=== PATIENT | female | born 1960 | race Caucasian/White ===

== ENCOUNTER 2018-11-28 09:04 | Inpatient (IN) | payer MEDICAID, OTHER ==
[~2018-11-28] VITALS: Ht 165.1 cm; Wt 122.9 kg
[2018-11-28] VITALS (43 sets, daily range): BP systolic 81–138; BP diastolic 40–72
[2018-11-28] MEDS ORDERED: HALOPERIDOL LACTATE 5 MG/ML INJ VIAL ONE (09:11)
[2018-11-28] MEDS ORDERED: diphenhdrAMINE HCL 50 MG/1 ML VL ONE (09:12)
[2018-11-28] MEDS ORDERED: LORazepam 2MG/ML-1ML VIAL ONE (09:12)
[2018-11-28] MEDS ORDERED: HALOPERIDOL LACTATE 5 MG/ML INJ VIAL IM ONE (09:45)
[2018-11-28] MEDS ORDERED: LORazepam 2MG/ML-1ML VIAL IM ONE (09:45)
[2018-11-28] MEDS ORDERED: SODIUM CHLORIDE 0.9% 1,000 ML IV ONE ×5 (09:45→11:00)
[2018-11-28] MEDS ORDERED: diphenhdrAMINE HCL 50 MG/1 ML VL IM ONE (09:45)
[2018-11-28 09:51] LABS: Hematocrit 42.8 % (36.0-46.0); Hemoglobin 14.2 g/dL (12.2-16.2); Mean Corpuscular Hemoglobin 27.9 pg (28.0-32.0); Mean Corpuscular Hgb Conc. 33.1 g/dL (32.0-36.0); Mean Corpuscular Volume 84.3 fL (80.0-100.0); Platelet Count (auto) 382 10^3/uL (140-450); Red Blood Cells 5.08 10^6/uL (4.0-5.20); Red Cell Distribution Width 16.3 % (11.8-14.3)
[2018-11-28 09:56] LABS: Urine Amorphous Crystal MOD /hpf (None Seen); Urine Bacteria FEW /hpf (None Seen); Urine Blood 3+ /uL (Negative); Urine Mucus FEW (None Seen); Urine Specific Gravity 1.024 (1.001-1.035); Urine WBC 22 /hpf (0 - 5); Urine WBC Clumps PRESENT /hpf (None Seen)
[2018-11-28 10:02] LABS: White Blood Cell 31.4 10^3/uL (4.4-10.8)
[2018-11-28 10:05] LABS: Basophils % (manual) 0 (0.0-2.0); Blast Cells 0; Eosinophils % (manual) 0 (0-7); Metamyelocytes % 0; Myelocytes % 0; Promyelocytes % 0; Reactive Lymphocytes 0
[2018-11-28 10:07] LABS: Alanine Aminotransferase 42 U/L (13-56); Albumin 4.5 g/dL (3.4-5.0); Anion Gap 20 (5-15); Aspartate Aminotransferase 70 U/L (15-37); BUN/Creatinine Ratio 12.3; Blood Alcohol < 3.0 mg/dL (0-5); Blood Urea Nitrogen 45 mg/dL (7-18); Calcium 9.1 mg/dL (8.5-10.1); Carbon Dioxide 14 mmol/L (21-32); Chloride 117 mmol/L (98-107); GFR African American 16 mL/min; GFR Non-African American 14 mL/min; Glucose 237 mg/dL (74-106); Magnesium 2.8 mg/dL (1.6-2.6); Potassium 3.8 mmol/L (3.5-5.1); Sodium 151 mmol/L (136-145)
[2018-11-28 10:09] LABS: Lactic Acid w/Reflex 5.5 mmol/L (0.4-2.0)
[2018-11-28 10:12] LABS: Alkaline Phosphatase 124 U/L (45-117); Bilirubin, Total 0.5 mg/dL (0.2-1.0); Total Protein 8.8 g/dL (6.4-8.2)
[2018-11-28 10:13] LABS: Alcohol, Urine < 3.0 mg/dL (0-5); Amphetamine Screen, Urine POSITIVE (NEGATIVE); Barbiturate Scree,Urine NEGATIVE (NEGATIVE); Benzodiazephine Screen, Urine NEGATIVE (NEGATIVE); Cannabinoid Screen, Urine NEGATIVE (NEGATIVE); Cocaine Screen, Urine NEGATIVE (NEGATIVE); Opiate Scree,Urine NEGATIVE (NEGATIVE); Phencyclidine Screen, Urine NEGATIVE (NEGATIVE)
[2018-11-28] MEDS ORDERED: cefTRIAXone 1GM/50ML D5W 50 ML IV ONE (10:30)
[2018-11-28] MEDS ORDERED: AZITHROMYCIN 500MG/ 250ML 250 ML IV ONE ×2 (10:52→11:00)
[2018-11-28] MEDS ORDERED: SODIUM CHLORIDE 0.9% IV ONE (11:00)
[2018-11-28 11:25] LABS: Band Neutrophils % (manual) 1; Lymphocytes % (manual) 4 (10.0-50.0); Monocytes % (manual) 7 (0-12)
[2018-11-28] MEDS ORDERED: MORPHINE SULF INJ 2 MG/ML SYRINGE 1ML IV PRN (13:30)
[2018-11-28] MEDS ORDERED: NITROGLYCERIN 0.4 MG SL TAB SL PRN (13:30)
[2018-11-28] MEDS ORDERED: PROPOFOL 100 ML IV ONE (14:04)
[2018-11-28] MEDS ORDERED: ETOMIDATE (2MG/ML) 20ML VIAL IV ONE (14:04)
[2018-11-28] MEDS ORDERED: THIAMINE 100mg/ml INJ (200mg/2ml VIAL) IV ONE (14:15)
[2018-11-28] MEDS ORDERED: DEXTROSE (50%) 50ML SYRG IV PRN (14:15)
[2018-11-28] MEDS ORDERED: SOD CHL 0.45% 1,000 ML IV SCH (14:15)
[2018-11-28] MEDS ORDERED: SUCCINYLCHOLINE CHLORIDE 20 MG/ML 10ML VIAL IV ONE (14:17)
[2018-11-28] MEDS ORDERED: NOREPINEPHRINE 8 MG/250ML KIT 250 ML IV ONE (14:23)
[2018-11-28] MEDS: NOREPINEPHRINE 8 MG/250ML KIT 250 ML IV SCH (14:27)
[2018-11-28] MEDS ORDERED: PIPERACILLIN-TAZOB 2.25GM 50 ML IV ONE (14:30)
[2018-11-28] MEDS ORDERED: FAMOTIDINE (10MG/ML) 2ML VL IV ONE (14:30)
[2018-11-28] MEDS: PROPOFOL 100 ML IV SCH ×4 (15:23→21:45)
[2018-11-28] MEDS: SODIUM BICARBONATE 50ML VIAL 50 ML in SOD CHL 0.45% 1,000 ML IV SCH (16:35)
[2018-11-28] MEDS: PIPERACILLIN-TAZOB 2.25GM 50 ML IV SCH (18:00)
[2018-11-28] MEDS: InsuLIN REG 1unit/0.01ml Soln (100units/ml) SC SCH (18:57)
[2018-11-28] MEDS: ACCU-CHEK COMFORT CURVE STRIP VI SCH (18:57)
[2018-11-28] MEDS: fentaNYL Drip 2500mCg/250mlNS 250 ML IV SCH (21:00)
[2018-11-28] MEDS: MIDAZOLAM DRIP 50 mg/50mL 50 ML IV SCH (21:00)
[2018-11-28] MEDS: FAMOTIDINE (10MG/ML) 2ML VL IV SCH (22:30)
[2018-11-29] VITALS (100 sets, daily range): BP systolic 81–120; BP diastolic 33–69
[2018-11-29] MEDS: ACCU-CHEK COMFORT CURVE STRIP VI SCH ×5 (02:15→22:00)
[2018-11-29] MEDS: SODIUM BICARBONATE 50ML VIAL 50 ML in SOD CHL 0.45% 1,000 ML IV SCH ×2 (02:33→07:03)
[2018-11-29] MEDS: InsuLIN REG 1unit/0.01ml Soln (100units/ml) SC SCH ×5 (04:05→22:28)
[2018-11-29 04:20] LABS: Basophils # (auto) 0.1 uL; Eosinophils # (auto) 0.3 uL; Eosinophils % (auto) 1.9 % (0.0-7.0); Hematocrit 32.6 % (36.0-46.0); Hemoglobin 10.6 g/dL (12.2-16.2); Lymphocytes % (auto) 14.4 % (10.0-50.0); Mean Corpuscular Hemoglobin 27.5 pg (28.0-32.0); Mean Corpuscular Hgb Conc. 32.4 g/dL (32.0-36.0); Mean Corpuscular Volume 85.1 fL (80.0-100.0); Monocytes # (auto) 0.7 uL; Monocytes % (auto) 5.3 % (0.0-12.0); Neutrophils # (auto) 10.9 uL; Neutrophils % (auto) 77.4 % (37.0-80.0); Nucleated Red Blood Cells % 0.1 %; Platelet Count (auto) 196 10^3/uL (140-450); Red Blood Cells 3.84 10^6/uL (4.0-5.20); Red Cell Distribution Width 16.3 % (11.8-14.3); White Blood Cell 14.1 10^3/uL (4.4-10.8)
[2018-11-29 04:34] LABS: Potassium 3.1 mmol/L (3.5-5.1)
[2018-11-29 04:44] LABS: Albumin 2.9 g/dL (3.4-5.0); BUN/Creatinine Ratio 18.6; Bilirubin, Total 0.3 mg/dL (0.2-1.0); Calcium 7.2 mg/dL (8.5-10.1)
[2018-11-29] MEDS: PIPERACILLIN-TAZOB 2.25GM 50 ML IV SCH ×4 (07:57→18:15)
[2018-11-29] MEDS ORDERED: POTASSIUM CHL 20MEQ/100ML 100 ML IV ONE (08:15)
[2018-11-29] MEDS: FAMOTIDINE (10MG/ML) 2ML VL IV SCH ×2 (09:50→22:45)
[2018-11-29] MEDS: THIAMINE 100mg/ml INJ (200mg/2ml VIAL) IV SCH (09:50)
[2018-11-29] MEDS: MIDAZOLAM DRIP 50 mg/50mL 50 ML IV SCH ×3 (09:51→20:30)
[2018-11-29] MEDS ORDERED: VANCOMYCIN PER PHARMACY 0 MG IV SCH (12:45)
[2018-11-29] MEDS ORDERED: Glucerna 1.2 Cal 1Liter BOTTLE GT SCH (12:45)
[2018-11-29] MEDS ORDERED: D5W/SOD CHL 0.45% 1,000 ML IV SCH (12:45)
[2018-11-29] MEDS ORDERED: VANCOMYCIN 1,250 MG in D5W 5% 250 ML IV ONE (13:15)
[2018-11-29] MEDS: fentaNYL Drip 2500mCg/250mlNS 250 ML IV SCH (14:03)
[2018-11-29] MEDS: NOREPINEPHRINE 8 MG/250ML KIT 250 ML IV SCH (14:08)
[2018-11-29] MEDS: ENOXAPARIN SOD 40 MG/0.4 ML SYRINGE SC SCH (14:28)
[2018-11-29] MEDS: D5W 5% 1,000 ML IV SCH (16:15)
[2018-11-29] MEDS: FREE WATER GT SCH (18:15)
[2018-11-30] VITALS (92 sets, daily range): BP systolic 85–152; BP diastolic 46–82
[2018-11-30] MEDS: PIPERACILLIN-TAZOB 2.25GM 50 ML IV SCH ×4 (01:23→18:03)
[2018-11-30] MEDS: MIDAZOLAM DRIP 50 mg/50mL 50 ML IV SCH ×3 (01:45→18:03)
[2018-11-30] MEDS: D5W 5% 1,000 ML IV SCH ×3 (02:52→13:00)
[2018-11-30 03:53] LABS: Basophils # (auto) 0.1 uL; Basophils % (auto) 1.1 % (0.0-2.0); Eosinophils # (auto) 0.4 uL; Eosinophils % (auto) 4.8 % (0.0-7.0); Hemoglobin 10.1 g/dL (12.2-16.2); Lymphocytes # (auto) 1.5 uL; Lymphocytes % (auto) 16.8 % (10.0-50.0); Mean Corpuscular Hemoglobin 28.3 pg (28.0-32.0); Mean Corpuscular Hgb Conc. 33.5 g/dL (32.0-36.0); Mean Corpuscular Volume 84.6 fL (80.0-100.0); Monocytes # (auto) 0.5 uL; Monocytes % (auto) 6.1 % (0.0-12.0); Neutrophils # (auto) 6.4 uL; Neutrophils % (auto) 71.2 % (37.0-80.0); Platelet Count (auto) 167 10^3/uL (140-450); Red Blood Cells 3.55 10^6/uL (4.0-5.20); Red Cell Distribution Width 16.3 % (11.8-14.3); White Blood Cell 8.9 10^3/uL (4.4-10.8)
[2018-11-30 04:27] LABS: Alanine Aminotransferase 32 U/L (13-56); Alkaline Phosphatase 73 U/L (45-117); Anion Gap 9 (5-15); Aspartate Aminotransferase 32 U/L (15-37); BUN/Creatinine Ratio 18.5; Bilirubin, Total 0.3 mg/dL (0.2-1.0); Blood Urea Nitrogen 45 mg/dL (7-18); Calcium 7.8 mg/dL (8.5-10.1); Carbon Dioxide 20 mmol/L (21-32); Chloride 117 mmol/L (98-107); GFR African American 26 mL/min; GFR Non-African American 22 mL/min; Glucose 180 mg/dL (74-106); Potassium 3.1 mmol/L (3.5-5.1); Sodium 146 mmol/L (136-145); Total Protein 5.6 g/dL (6.4-8.2)
[2018-11-30 04:28] LABS: Albumin 2.7 g/dL (3.4-5.0)
[2018-11-30] MEDS: FREE WATER GT SCH ×4 (06:00→18:03)
[2018-11-30] MEDS: ACCU-CHEK COMFORT CURVE STRIP VI SCH ×3 (06:35→18:04)
[2018-11-30] MEDS: PROPOFOL 100 ML IV SCH (08:00)
[2018-11-30] MEDS: InsuLIN REG 1unit/0.01ml Soln (100units/ml) SC SCH ×3 (09:23→18:04)
[2018-11-30] MEDS: ACETAMINOPHEN 500 MG TAB PO PRN (09:39)
[2018-11-30] MEDS: FAMOTIDINE (10MG/ML) 2ML VL IV SCH ×2 (09:39→22:12)
[2018-11-30] MEDS: ENOXAPARIN SOD 40 MG/0.4 ML SYRINGE SC SCH (09:39)
[2018-11-30] MEDS: THIAMINE 100mg/ml INJ (200mg/2ml VIAL) IV SCH (09:39)
[2018-11-30] MEDS ORDERED: VANCOMYCIN 1,250 MG in D5W 5% 250 ML IV ONE (10:00)
[2018-11-30] MEDS: POTASSIUM CHL 20MEQ/100ML 100 ML IV SCH ×2 (10:18→12:04)
[2018-11-30 11:02] LABS: Magnesium 2.4 mg/dL (1.6-2.6); Phosphorus 3.3 mg/dL (2.5-4.90)
[2018-11-30] MEDS: fentaNYL Drip 2500mCg/250mlNS 250 ML IV SCH (14:03)
[2018-11-30] MEDS: NOREPINEPHRINE 8 MG/250ML KIT 250 ML IV SCH (14:08)
[2018-11-30] MEDS: IPRATROPIUM BROM 0.5 MG/2.5ML INH SOL NEB SCH (17:56)
[2018-11-30] MEDS: ALBUTEROL SULF 2.5 MG/0.5ML(0.5%) NEB SOLN NEB SCH (17:56)
[2018-12-01] VITALS (98 sets, daily range): BP systolic 119–181; BP diastolic 61–109
[2018-12-01] MEDS: ALBUTEROL SULF 2.5 MG/0.5ML(0.5%) NEB SOLN NEB SCH ×4 (00:03→17:58)
[2018-12-01] MEDS: IPRATROPIUM BROM 0.5 MG/2.5ML INH SOL NEB SCH ×4 (00:03→17:58)
[2018-12-01] MEDS: FREE WATER GT SCH ×4 (00:18→17:50)
[2018-12-01] MEDS: PIPERACILLIN-TAZOB 2.25GM 50 ML IV SCH ×4 (00:37→18:02)
[2018-12-01] MEDS: D5W 5% 1,000 ML IV SCH ×3 (02:20→15:11)
[2018-12-01 04:22] LABS: Basophils # (auto) 0 uL; Basophils % (auto) 0.6 % (0.0-2.0); Eosinophils # (auto) 0.3 uL; Eosinophils % (auto) 4.1 % (0.0-7.0); Hemoglobin 10.6 g/dL (12.2-16.2); Lymphocytes # (auto) 0.8 uL; Lymphocytes % (auto) 11.9 % (10.0-50.0); Mean Corpuscular Hemoglobin 27.9 pg (28.0-32.0); Mean Corpuscular Hgb Conc. 33.1 g/dL (32.0-36.0); Mean Corpuscular Volume 84.3 fL (80.0-100.0); Monocytes # (auto) 0.5 uL; Monocytes % (auto) 7.8 % (0.0-12.0); Neutrophils # (auto) 5.1 uL; Neutrophils % (auto) 75.6 % (37.0-80.0); Platelet Count (auto) 171 10^3/uL (140-450); Red Blood Cells 3.79 10^6/uL (4.0-5.20); Red Cell Distribution Width 16.8 % (11.8-14.3); White Blood Cell 6.7 10^3/uL (4.4-10.8)
[2018-12-01 04:38] LABS: BUN/Creatinine Ratio 16.5; Potassium 3.4 mmol/L (3.5-5.1)
[2018-12-01] MEDS: PROPOFOL 100 ML IV SCH ×3 (05:03→06:30)
[2018-12-01] MEDS: InsuLIN REG 1unit/0.01ml Soln (100units/ml) SC SCH ×4 (06:28→17:53)
[2018-12-01] MEDS: ACCU-CHEK COMFORT CURVE STRIP VI SCH ×4 (06:29→17:53)
[2018-12-01] MEDS: ENOXAPARIN SOD 40 MG/0.4 ML SYRINGE SC SCH (10:11)
[2018-12-01] MEDS: THIAMINE 100mg/ml INJ (200mg/2ml VIAL) IV SCH (10:11)
[2018-12-01] MEDS: FAMOTIDINE (10MG/ML) 2ML VL IV SCH ×2 (10:11→21:58)
[2018-12-01] MEDS: fentaNYL Drip 2500mCg/250mlNS 250 ML IV SCH (12:12)
[2018-12-01] MEDS: NOREPINEPHRINE 8 MG/250ML KIT 250 ML IV SCH (12:13)
[2018-12-01] MEDS: ACETAMINOPHEN 500 MG TAB PO PRN (12:55)
[2018-12-01] MEDS ORDERED: POTASSIUM EFFERVESENT TAB 25 MEQ GT ONE (14:45)
[2018-12-01] MEDS ORDERED: FUROSEMIDE 20 MG/2 ML VIAL IV ONE (14:45)
[2018-12-01] MEDS: LINEZOLID 600MG/300ML 300 ML IV SCH (21:58)
[2018-12-02] VITALS (105 sets, daily range): BP systolic 97–176; BP diastolic 49–119
[2018-12-02] MEDS: ALBUTEROL SULF 2.5 MG/0.5ML(0.5%) NEB SOLN NEB SCH ×4 (00:04→18:09)
[2018-12-02] MEDS: IPRATROPIUM BROM 0.5 MG/2.5ML INH SOL NEB SCH ×4 (00:04→18:09)
[2018-12-02 04:13] LABS: Basophils # (auto) 0 uL; Basophils % (auto) 0.6 % (0.0-2.0); Eosinophils # (auto) 0.2 uL; Eosinophils % (auto) 4.9 % (0.0-7.0); Hematocrit 27.5 % (36.0-46.0); Hemoglobin 9.4 g/dL (12.2-16.2); Lymphocytes # (auto) 0.9 uL; Mean Corpuscular Hemoglobin 28.4 pg (28.0-32.0); Mean Corpuscular Hgb Conc. 34.1 g/dL (32.0-36.0); Mean Corpuscular Volume 83.2 fL (80.0-100.0); Monocytes # (auto) 0.6 uL; Monocytes % (auto) 12.3 % (0.0-12.0); Neutrophils # (auto) 3.1 uL; Neutrophils % (auto) 63.2 % (37.0-80.0); Platelet Count (auto) 158 10^3/uL (140-450); Red Cell Distribution Width 16.5 % (11.8-14.3); White Blood Cell 4.9 10^3/uL (4.4-10.8)
[2018-12-02 04:29] LABS: Calcium 8.2 mg/dL (8.5-10.1)
[2018-12-02 04:32] LABS: BUN/Creatinine Ratio 14.8
[2018-12-02 04:53] LABS: Potassium 2.9 mmol/L (3.5-5.1)
[2018-12-02] MEDS: PIPERACILLIN-TAZOB 2.25GM 50 ML IV SCH ×4 (06:00→18:24)
[2018-12-02] MEDS: ACCU-CHEK COMFORT CURVE STRIP VI SCH ×4 (06:00→17:39)
[2018-12-02] MEDS: FREE WATER GT SCH ×4 (06:00→17:39)
[2018-12-02] MEDS: InsuLIN REG 1unit/0.01ml Soln (100units/ml) SC SCH ×4 (06:00→17:39)
[2018-12-02] MEDS ORDERED: POTASSIUM CHLORIDE 40 MEQ, LIDOCAINE 1% (LOCAL ANESTH.) 4 ML in SODIUM CHL 0.9% 100 ML IV ONE (07:00)
[2018-12-02] MEDS: D5W 5% 1,000 ML IV SCH (08:23)
[2018-12-02] MEDS: LINEZOLID 600MG/300ML 300 ML IV SCH ×2 (09:52→22:27)
[2018-12-02] MEDS: THIAMINE 100mg/ml INJ (200mg/2ml VIAL) IV SCH (09:52)
[2018-12-02] MEDS: FAMOTIDINE (10MG/ML) 2ML VL IV SCH ×2 (09:53→22:27)
[2018-12-02] MEDS: ENOXAPARIN SOD 40 MG/0.4 ML SYRINGE SC SCH (09:53)
[2018-12-02] MEDS ORDERED: FUROSEMIDE 40 MG/4 ML VIAL IV ONE (12:00)
[2018-12-02] MEDS: POTASSIUM CHL 20MEQ/100ML 100 ML IV SCH ×2 (13:40→14:27)
[2018-12-02] MEDS: MIDAZOLAM DRIP 50 mg/50mL 50 ML IV SCH (14:03)
[2018-12-02] MEDS: fentaNYL Drip 2500mCg/250mlNS 250 ML IV SCH (14:28)
[2018-12-02] MEDS: PROPOFOL 100 ML IV SCH (18:25)
[2018-12-03] VITALS (104 sets, daily range): BP systolic 107–200; BP diastolic 58–105
[2018-12-03] MEDS: IPRATROPIUM BROM 0.5 MG/2.5ML INH SOL NEB SCH ×5 (00:02→23:52)
[2018-12-03] MEDS: ALBUTEROL SULF 2.5 MG/0.5ML(0.5%) NEB SOLN NEB SCH ×5 (00:02→23:52)
[2018-12-03 04:15] LABS: Basophils # (auto) 0 uL; Basophils % (auto) 0.4 % (0.0-2.0); Eosinophils # (auto) 0.4 uL; Eosinophils % (auto) 5.7 % (0.0-7.0); Hematocrit 29.6 % (36.0-46.0); Hemoglobin 9.9 g/dL (12.2-16.2); Lymphocytes # (auto) 1.1 uL; Lymphocytes % (auto) 17.3 % (10.0-50.0); Mean Corpuscular Hemoglobin 28.3 pg (28.0-32.0); Mean Corpuscular Hgb Conc. 33.4 g/dL (32.0-36.0); Mean Corpuscular Volume 84.8 fL (80.0-100.0); Monocytes # (auto) 0.7 uL; Monocytes % (auto) 11.4 % (0.0-12.0); Neutrophils % (auto) 65.2 % (37.0-80.0); Nucleated Red Blood Cells % 0.1 %; Platelet Count (auto) 173 10^3/uL (140-450); Red Blood Cells 3.49 10^6/uL (4.0-5.20); Red Cell Distribution Width 16.5 % (11.8-14.3); White Blood Cell 6.2 10^3/uL (4.4-10.8)
[2018-12-03 04:34] LABS: BUN/Creatinine Ratio 11.4; Calcium 8.6 mg/dL (8.5-10.1); Magnesium 2.3 mg/dL (1.6-2.6); Potassium 3.1 mmol/L (3.5-5.1)
[2018-12-03] MEDS: ACCU-CHEK COMFORT CURVE STRIP VI SCH ×4 (06:00→18:05)
[2018-12-03] MEDS ORDERED: POTASSIUM CHLORIDE 40 MEQ, LIDOCAINE 1% (LOCAL ANESTH.) 4 ML in SODIUM CHL 0.9% 100 ML IV ONE (06:00)
[2018-12-03] MEDS: FREE WATER GT SCH ×4 (06:03→18:04)
[2018-12-03] MEDS: PIPERACILLIN-TAZOB 2.25GM 50 ML IV SCH ×4 (06:19→18:04)
[2018-12-03] MEDS: InsuLIN REG 1unit/0.01ml Soln (100units/ml) SC SCH ×4 (06:29→18:00)
[2018-12-03] MEDS: FAMOTIDINE (10MG/ML) 2ML VL IV SCH ×2 (09:49→22:50)
[2018-12-03] MEDS: LINEZOLID 600MG/300ML 300 ML IV SCH ×2 (09:50→22:50)
[2018-12-03] MEDS: ENOXAPARIN SOD 40 MG/0.4 ML SYRINGE SC SCH (09:50)
[2018-12-03] MEDS: THIAMINE 100mg/ml INJ (200mg/2ml VIAL) IV SCH (09:50)
[2018-12-03] MEDS: MIDAZOLAM DRIP 50 mg/50mL 50 ML IV SCH (14:03)
[2018-12-03] MEDS: fentaNYL Drip 2500mCg/250mlNS 250 ML IV SCH (14:03)
[2018-12-03] MEDS: POTASSIUM CHL 20MEQ/100ML 100 ML IV SCH ×2 (14:16→16:06)
[2018-12-03] MEDS: PROPOFOL 100 ML IV SCH ×2 (16:06→22:14)
[2018-12-04] VITALS (105 sets, daily range): BP systolic 14–213; BP diastolic 54–144
[2018-12-04] MEDS: InsuLIN REG 1unit/0.01ml Soln (100units/ml) SC SCH ×4 (00:15→17:57)
[2018-12-04] MEDS: ACCU-CHEK COMFORT CURVE STRIP VI SCH ×4 (00:15→17:56)
[2018-12-04] MEDS: FREE WATER GT SCH ×4 (01:15→17:43)
[2018-12-04] MEDS: PIPERACILLIN-TAZOB 2.25GM 50 ML IV SCH ×4 (01:42→17:43)
[2018-12-04] MEDS: fentaNYL Drip 2500mCg/250mlNS 250 ML IV SCH ×2 (03:06→23:07)
[2018-12-04] MEDS: hydrALAZINE HCL 20 MG/ML VL IV PRN ×2 (03:25→05:58)
[2018-12-04] MEDS: ALBUTEROL SULF 2.5 MG/0.5ML(0.5%) NEB SOLN NEB SCH ×4 (05:29→23:54)
[2018-12-04] MEDS: IPRATROPIUM BROM 0.5 MG/2.5ML INH SOL NEB SCH ×4 (05:29→23:54)
[2018-12-04] MEDS: THIAMINE 100mg/ml INJ (200mg/2ml VIAL) IV SCH (09:43)
[2018-12-04] MEDS: ENOXAPARIN SOD 40 MG/0.4 ML SYRINGE SC SCH (09:43)
[2018-12-04] MEDS: FAMOTIDINE (10MG/ML) 2ML VL IV SCH ×2 (09:43→22:31)
[2018-12-04] MEDS: LINEZOLID 600MG/300ML 300 ML IV SCH ×2 (09:44→22:31)
[2018-12-04] MEDS: methylPREDNISolone SOD SUCC 125 MG/2 ML VL IV SCH ×2 (10:08→22:31)
[2018-12-04] MEDS: PROPOFOL 100 ML IV SCH ×2 (12:04→22:30)
[2018-12-04] MEDS: MIDAZOLAM DRIP 50 mg/50mL 50 ML IV SCH (13:29)
[2018-12-04 23:10] LABS: Albumin 2.8 g/dL (3.4-5.0); BUN/Creatinine Ratio 13.3; Calcium 8.8 mg/dL (8.5-10.1); Magnesium 2.4 mg/dL (1.6-2.6); Potassium 3.9 mmol/L (3.5-5.1)
[2018-12-04 23:13] LABS: Bilirubin, Total 0.4 mg/dL (0.2-1.0); Total Protein 6.9 g/dL (6.4-8.2)
[2018-12-05] VITALS (102 sets, daily range): BP systolic 102–209; BP diastolic 45–114
[2018-12-05] MEDS: FREE WATER GT SCH ×4 (00:04→18:32)
[2018-12-05] MEDS: ACCU-CHEK COMFORT CURVE STRIP VI SCH ×4 (00:04→18:32)
[2018-12-05] MEDS: InsuLIN REG 1unit/0.01ml Soln (100units/ml) SC SCH ×3 (00:29→11:54)
[2018-12-05] MEDS: PIPERACILLIN-TAZOB 2.25GM 50 ML IV SCH ×3 (00:32→11:54)
[2018-12-05] MEDS: PROPOFOL 100 ML IV SCH ×4 (03:46→22:34)
[2018-12-05 04:09] LABS: Hemoglobin 10.5 g/dL (12.2-16.2); Mean Corpuscular Hemoglobin 27.8 pg (28.0-32.0); Mean Corpuscular Hgb Conc. 32.7 g/dL (32.0-36.0); Mean Corpuscular Volume 85.2 fL (80.0-100.0); Platelet Count (auto) 247 10^3/uL (140-450); Red Blood Cells 3.76 10^6/uL (4.0-5.20); Red Cell Distribution Width 17.3 % (11.8-14.3); White Blood Cell 11.8 10^3/uL (4.4-10.8)
[2018-12-05 04:19] LABS: Basophils % (manual) 0 (0.0-2.0); Blast Cells 0; Metamyelocytes % 0; Myelocytes % 0; Promyelocytes % 0; Reactive Lymphocytes 0
[2018-12-05 04:45] LABS: Potassium 4.2 mmol/L (3.5-5.1)
[2018-12-05 04:55] LABS: Albumin 2.8 g/dL (3.4-5.0); BUN/Creatinine Ratio 13.8; Bilirubin, Total 0.3 mg/dL (0.2-1.0); Calcium 8.8 mg/dL (8.5-10.1); Magnesium 2.5 mg/dL (1.6-2.6); Total Protein 6.8 g/dL (6.4-8.2)
[2018-12-05] MEDS ORDERED: methylPREDNISolone SOD SUCC 40 MG/ML VL IV SCH (06:00)
[2018-12-05] MEDS: IPRATROPIUM BROM 0.5 MG/2.5ML INH SOL NEB SCH ×4 (06:03→23:59)
[2018-12-05] MEDS: ALBUTEROL SULF 2.5 MG/0.5ML(0.5%) NEB SOLN NEB SCH ×4 (06:03→23:59)
[2018-12-05 06:33] LABS: Band Neutrophils % (manual) 5; Eosinophils % (manual) 1 (0-7); Lymphocytes % (manual) 13 (10.0-50.0); Monocytes % (manual) 8 (0-12)
[2018-12-05] MEDS: LINEZOLID 600MG/300ML 300 ML IV SCH ×2 (09:38→22:40)
[2018-12-05] MEDS: FAMOTIDINE (10MG/ML) 2ML VL IV SCH ×2 (09:38→22:40)
[2018-12-05] MEDS: THIAMINE 100mg/ml INJ (200mg/2ml VIAL) IV SCH (09:38)
[2018-12-05] MEDS: ENOXAPARIN SOD 40 MG/0.4 ML SYRINGE SC SCH (09:39)
[2018-12-05] MEDS: MIDAZOLAM DRIP 50 mg/50mL 50 ML IV SCH ×4 (10:00→23:29)
[2018-12-05] MEDS ORDERED: methylPREDNISolone SOD SUCC 125 MG/2 ML VL IV SCH (10:00)
[2018-12-05] MEDS ORDERED: CIPROFLOXACIN 400MG/200ML 200 ML IV ONE (12:15)
[2018-12-05] MEDS ORDERED: MORPHINE SULF INJ 2 MG/ML SYRINGE 1ML IV PRN (12:30)
[2018-12-05 13:35] LABS: Urine Bacteria NONE SEEN /hpf (None Seen); Urine Blood 2+ /uL (Negative); Urine Mucus FEW (None Seen); Urine Specific Gravity 1.021 (1.001-1.035); Urine WBC 22 /hpf (0 - 5)
[2018-12-05] MEDS: METOCLOPRAMIDE HCL 5MG/ml INJ 2ml VIAL IV SCH ×2 (14:14→22:40)
[2018-12-05] MEDS: fentaNYL Drip 2500mCg/250mlNS 250 ML IV SCH (14:18)
[2018-12-05 16:23] LABS: Partial Thromboplastin Time 24.7 sec (23.64-32.05)
[2018-12-05] MEDS: SODIUM CHLOR 0.9% PF (SALINE LOCK) 10ML VIAL/SYR IV SCH (22:40)
[2018-12-05] MEDS: CIPROFLOXACIN 400MG/200ML 200 ML IV SCH (22:40)
[2018-12-06] VITALS (100 sets, daily range): BP systolic 93–169; BP diastolic 48–94
[2018-12-06] MEDS: MIDAZOLAM DRIP 50 mg/50mL 50 ML IV SCH ×5 (00:20→22:34)
[2018-12-06] MEDS: ACCU-CHEK COMFORT CURVE STRIP VI SCH ×4 (00:33→17:32)
[2018-12-06] MEDS: InsuLIN REG 1unit/0.01ml Soln (100units/ml) SC SCH ×5 (00:40→17:32)
[2018-12-06 04:08] LABS: Basophils # (auto) 0 uL; Basophils % (auto) 0.5 % (0.0-2.0); Eosinophils # (auto) 0.2 uL; Eosinophils % (auto) 2.2 % (0.0-7.0); Hematocrit 26.8 % (36.0-46.0); Hemoglobin 9.2 g/dL (12.2-16.2); Lymphocytes # (auto) 1.7 uL; Lymphocytes % (auto) 17.5 % (10.0-50.0); Mean Corpuscular Hemoglobin 28.6 pg (28.0-32.0); Mean Corpuscular Hgb Conc. 34.2 g/dL (32.0-36.0); Mean Corpuscular Volume 83.7 fL (80.0-100.0); Monocytes % (auto) 9.9 % (0.0-12.0); Neutrophils # (auto) 6.8 uL; Neutrophils % (auto) 69.9 % (37.0-80.0); Nucleated Red Blood Cells % 0.1 %; Platelet Count (auto) 206 10^3/uL (140-450); Red Cell Distribution Width 16.8 % (11.8-14.3); White Blood Cell 9.7 10^3/uL (4.4-10.8)
[2018-12-06 04:16] LABS: BUN/Creatinine Ratio 18.7; Calcium 8.4 mg/dL (8.5-10.1); Potassium 3.1 mmol/L (3.5-5.1)
[2018-12-06] MEDS: PROPOFOL 100 ML IV SCH ×3 (05:45→23:10)
[2018-12-06] MEDS: ALBUTEROL SULF 2.5 MG/0.5ML(0.5%) NEB SOLN NEB SCH ×3 (05:46→18:11)
[2018-12-06] MEDS: IPRATROPIUM BROM 0.5 MG/2.5ML INH SOL NEB SCH ×3 (05:46→18:12)
[2018-12-06] MEDS: FREE WATER GT SCH ×4 (06:04→17:31)
[2018-12-06] MEDS: METOCLOPRAMIDE HCL 5MG/ml INJ 2ml VIAL IV SCH ×3 (06:10→22:25)
[2018-12-06] MEDS: CIPROFLOXACIN 400MG/200ML 200 ML IV SCH ×2 (10:18→22:25)
[2018-12-06] MEDS: THIAMINE 100mg/ml INJ (200mg/2ml VIAL) IV SCH (10:18)
[2018-12-06] MEDS: SODIUM CHLOR 0.9% PF (SALINE LOCK) 10ML VIAL/SYR IV SCH ×2 (10:19→22:25)
[2018-12-06] MEDS: LINEZOLID 600MG/300ML 300 ML IV SCH ×2 (10:19→22:25)
[2018-12-06] MEDS: FAMOTIDINE (10MG/ML) 2ML VL IV SCH ×2 (10:19→22:25)
[2018-12-06] MEDS: ENOXAPARIN SOD 40 MG/0.4 ML SYRINGE SC SCH (10:19)
[2018-12-06] MEDS ORDERED: FUROSEMIDE 40 MG/4 ML VIAL IV ONE (12:30)
[2018-12-06] MEDS ORDERED: METOPROLOL TARTRATE 25 MG TAB PO ONE (12:30)
[2018-12-06] MEDS ORDERED: POTASSIUM EFFERVESENT TAB 25 MEQ GT ONE (12:30)
[2018-12-06] MEDS: fentaNYL Drip 2500mCg/250mlNS 250 ML IV SCH (14:03)
[2018-12-06] MEDS: DexMEDEtomidine 400 MCG in D5W 5% 96 ML IV PRN (21:15)
[2018-12-06] MEDS: METOPROLOL TARTRATE 25 MG TAB PO SCH (22:38)
[2018-12-07] VITALS (103 sets, daily range): BP systolic 95–206; BP diastolic 50–110
[2018-12-07] MEDS: ALBUTEROL SULF 2.5 MG/0.5ML(0.5%) NEB SOLN NEB SCH ×4 (00:37→20:16)
[2018-12-07] MEDS: IPRATROPIUM BROM 0.5 MG/2.5ML INH SOL NEB SCH ×4 (00:37→20:16)
[2018-12-07] MEDS: ACCU-CHEK COMFORT CURVE STRIP VI SCH ×4 (01:14→17:21)
[2018-12-07] MEDS: InsuLIN REG 1unit/0.01ml Soln (100units/ml) SC SCH ×4 (01:20→17:31)
[2018-12-07 04:22] LABS: Basophils # (auto) 0.1 uL; Basophils % (auto) 1.3 % (0.0-2.0); Eosinophils # (auto) 0.4 uL; Eosinophils % (auto) 5.7 % (0.0-7.0); Hematocrit 28.4 % (36.0-46.0); Hemoglobin 9.8 g/dL (12.2-16.2); Lymphocytes # (auto) 1.8 uL; Lymphocytes % (auto) 25.4 % (10.0-50.0); Mean Corpuscular Hemoglobin 28.6 pg (28.0-32.0); Mean Corpuscular Hgb Conc. 34.4 g/dL (32.0-36.0); Mean Corpuscular Volume 83.1 fL (80.0-100.0); Monocytes # (auto) 0.7 uL; Monocytes % (auto) 9.7 % (0.0-12.0); Neutrophils # (auto) 4.1 uL; Neutrophils % (auto) 57.9 % (37.0-80.0); Nucleated Red Blood Cells % 0.1 %; Platelet Count (auto) 211 10^3/uL (140-450); Red Blood Cells 3.42 10^6/uL (4.0-5.20); Red Cell Distribution Width 16.9 % (11.8-14.3); White Blood Cell 7.1 10^3/uL (4.4-10.8)
[2018-12-07 04:47] LABS: Calcium 8.6 mg/dL (8.5-10.1); Potassium 3.1 mmol/L (3.5-5.1)
[2018-12-07 04:49] LABS: BUN/Creatinine Ratio 16.1
[2018-12-07] MEDS: FREE WATER GT SCH ×4 (06:00→17:20)
[2018-12-07] MEDS: METOCLOPRAMIDE HCL 5MG/ml INJ 2ml VIAL IV SCH (06:15)
[2018-12-07] MEDS: DexMEDEtomidine 400 MCG in D5W 5% 96 ML IV PRN (09:00)
[2018-12-07] MEDS: CIPROFLOXACIN 400MG/200ML 200 ML IV SCH ×2 (09:54→21:48)
[2018-12-07] MEDS: POTASSIUM EFFERVESENT TAB 25 MEQ GT SCH (09:54)
[2018-12-07] MEDS: FUROSEMIDE 40 MG/4 ML VIAL IV SCH (09:54)
[2018-12-07] MEDS: THIAMINE 100mg/ml INJ (200mg/2ml VIAL) IV SCH (09:54)
[2018-12-07] MEDS: SODIUM CHLOR 0.9% PF (SALINE LOCK) 10ML VIAL/SYR IV SCH ×2 (09:55→21:49)
[2018-12-07] MEDS: LINEZOLID 600MG/300ML 300 ML IV SCH ×2 (09:55→21:48)
[2018-12-07] MEDS: FAMOTIDINE (10MG/ML) 2ML VL IV SCH ×2 (09:55→21:48)
[2018-12-07] MEDS: METOPROLOL TARTRATE 25 MG TAB PO SCH ×2 (09:55→21:48)
[2018-12-07] MEDS: ENOXAPARIN SOD 40 MG/0.4 ML SYRINGE SC SCH (09:56)
[2018-12-07] MEDS ORDERED: FUROSEMIDE 40 MG/4 ML VIAL IV ONE (14:15)
[2018-12-07] MEDS ORDERED: EPINEPHrine HCL 0.5 ML NEB NEB ONE (14:30)
[2018-12-07] MEDS ORDERED: EPINEPHrine HCL 0.5 ML NEB ONE (14:37)
[2018-12-07] MEDS: hydrALAZINE HCL 20 MG/ML VL IV PRN ×2 (19:09→23:40)
[2018-12-08] VITALS (54 sets, daily range): BP systolic 115–188; BP diastolic 52–99
[2018-12-08] MEDS: InsuLIN REG 1unit/0.01ml Soln (100units/ml) SC SCH ×4 (00:03→17:18)
[2018-12-08] MEDS: ACCU-CHEK COMFORT CURVE STRIP VI SCH ×4 (00:03→17:18)
[2018-12-08] MEDS: ALBUTEROL SULF 2.5 MG/0.5ML(0.5%) NEB SOLN NEB SCH ×4 (01:22→18:53)
[2018-12-08] MEDS: IPRATROPIUM BROM 0.5 MG/2.5ML INH SOL NEB SCH ×4 (01:22→18:53)
[2018-12-08 04:01] LABS: Basophils # (auto) 0.1 uL; Basophils % (auto) 0.9 % (0.0-2.0); Eosinophils # (auto) 0.4 uL; Eosinophils % (auto) 3.8 % (0.0-7.0); Hematocrit 35.3 % (36.0-46.0); Hemoglobin 12.1 g/dL (12.2-16.2); Lymphocytes # (auto) 1.3 uL; Lymphocytes % (auto) 10.6 % (10.0-50.0); Mean Corpuscular Hemoglobin 28.1 pg (28.0-32.0); Mean Corpuscular Hgb Conc. 34.3 g/dL (32.0-36.0); Monocytes # (auto) 1.1 uL; Monocytes % (auto) 9.5 % (0.0-12.0); Neutrophils # (auto) 8.9 uL; Neutrophils % (auto) 75.2 % (37.0-80.0); Platelet Count (auto) 279 10^3/uL (140-450); Red Cell Distribution Width 16.7 % (11.8-14.3); White Blood Cell 11.8 10^3/uL (4.4-10.8)
[2018-12-08 04:21] LABS: BUN/Creatinine Ratio 13.3; Calcium 8.9 mg/dL (8.5-10.1); Magnesium 1.9 mg/dL (1.6-2.6)
[2018-12-08] MEDS ORDERED: POTASSIUM EFFERVESENT TAB 25 MEQ PO ONE (05:30)
[2018-12-08] MEDS: THIAMINE 100mg/ml INJ (200mg/2ml VIAL) IV SCH (10:40)
[2018-12-08] MEDS: POTASSIUM EFFERVESENT TAB 25 MEQ GT SCH (10:40)
[2018-12-08] MEDS: FUROSEMIDE 40 MG/4 ML VIAL IV SCH (10:44)
[2018-12-08] MEDS: FAMOTIDINE (10MG/ML) 2ML VL IV SCH ×2 (10:44→23:12)
[2018-12-08] MEDS: SODIUM CHLOR 0.9% PF (SALINE LOCK) 10ML VIAL/SYR IV SCH ×2 (10:45→23:12)
[2018-12-08] MEDS: ENOXAPARIN SOD 40 MG/0.4 ML SYRINGE SC SCH (10:45)
[2018-12-08] MEDS: METOPROLOL TARTRATE 25 MG TAB PO SCH ×2 (10:46→23:14)
[2018-12-08] MEDS: LINEZOLID 600MG/300ML 300 ML IV SCH ×2 (10:48→23:13)
[2018-12-08] MEDS: CIPROFLOXACIN 400MG/200ML 200 ML IV SCH ×2 (10:49→22:00)
[2018-12-08] MEDS ORDERED: POTASSIUM CHL 20 Meq TABLET PO ONE (11:45)
[2018-12-08] MEDS: hydrALAZINE HCL 20 MG/ML VL IV PRN (23:15)
[2018-12-09] MEDS: IPRATROPIUM BROM 0.5 MG/2.5ML INH SOL NEB SCH ×5 (00:28→23:30)
[2018-12-09] MEDS: ALBUTEROL SULF 2.5 MG/0.5ML(0.5%) NEB SOLN NEB SCH ×5 (00:28→23:31)
[2018-12-09] MEDS: ACCU-CHEK COMFORT CURVE STRIP VI SCH ×4 (00:51→17:43)
[2018-12-09] MEDS: InsuLIN REG 1unit/0.01ml Soln (100units/ml) SC SCH ×4 (00:52→17:44)
[2018-12-09 05:00] VITALS: BP 144/86
[2018-12-09 07:29] LABS: BUN/Creatinine Ratio 17.3
[2018-12-09 09:00] VITALS: BP 168/92
[2018-12-09] MEDS ORDERED: POTASSIUM CHL 20 Meq TABLET PO ONE (10:15)
[2018-12-09] MEDS: POTASSIUM EFFERVESENT TAB 25 MEQ GT SCH (10:25)
[2018-12-09] MEDS: ENOXAPARIN SOD 40 MG/0.4 ML SYRINGE SC SCH (10:26)
[2018-12-09] MEDS: THIAMINE HCL 100 MG TAB PO SCH (10:26)
[2018-12-09] MEDS: SODIUM CHLOR 0.9% PF (SALINE LOCK) 10ML VIAL/SYR IV SCH ×2 (10:26→23:10)
[2018-12-09] MEDS: LINEZOLID 600MG/300ML 300 ML IV SCH ×2 (10:27→23:09)
[2018-12-09] MEDS: CIPROFLOXACIN 400MG/200ML 200 ML IV SCH ×2 (10:27→20:51)
[2018-12-09] MEDS: FAMOTIDINE 20 MG TAB PO SCH (10:55)
[2018-12-09] MEDS: METOPROLOL TARTRATE 25 MG TAB PO SCH ×2 (10:56→23:10)
[2018-12-09 13:00] VITALS: BP 159/95
[2018-12-09 17:00] VITALS: BP 138/81
[2018-12-09 21:04] VITALS: BP 138/68
[2018-12-10] MEDS: ACCU-CHEK COMFORT CURVE STRIP VI SCH ×4 (00:03→17:26)
[2018-12-10] MEDS: InsuLIN REG 1unit/0.01ml Soln (100units/ml) SC SCH ×4 (00:04→17:26)
[2018-12-10 05:45] VITALS: BP 131/69
[2018-12-10 05:55] LABS: Basophils # (auto) 0.2 uL; Basophils % (auto) 1.5 % (0.0-2.0); Eosinophils # (auto) 0.5 uL; Eosinophils % (auto) 4.9 % (0.0-7.0); Hematocrit 37.9 % (36.0-46.0); Hemoglobin 12.7 g/dL (12.2-16.2); Lymphocytes # (auto) 2.2 uL; Lymphocytes % (auto) 19.3 % (10.0-50.0); Mean Corpuscular Hgb Conc. 33.5 g/dL (32.0-36.0); Mean Corpuscular Volume 83.6 fL (80.0-100.0); Monocytes # (auto) 0.9 uL; Monocytes % (auto) 8.4 % (0.0-12.0); Neutrophils # (auto) 7.4 uL; Neutrophils % (auto) 65.9 % (37.0-80.0); Nucleated Red Blood Cells % 0.1 %; Platelet Count (auto) 252 10^3/uL (140-450); Red Blood Cells 4.53 10^6/uL (4.0-5.20); Red Cell Distribution Width 17.4 % (11.8-14.3); White Blood Cell 11.2 10^3/uL (4.4-10.8)
[2018-12-10 06:15] LABS: BUN/Creatinine Ratio 18.8; Calcium 9.2 mg/dL (8.5-10.1); Potassium 3.3 mmol/L (3.5-5.1)
[2018-12-10] MEDS: ALBUTEROL SULF 2.5 MG/0.5ML(0.5%) NEB SOLN NEB SCH ×3 (07:20→18:27)
[2018-12-10] MEDS: IPRATROPIUM BROM 0.5 MG/2.5ML INH SOL NEB SCH ×3 (07:20→18:27)
[2018-12-10 09:00] VITALS: BP 142/71
[2018-12-10] MEDS: FAMOTIDINE 20 MG TAB PO SCH (10:00)
[2018-12-10] MEDS: SODIUM CHLOR 0.9% PF (SALINE LOCK) 10ML VIAL/SYR IV SCH ×2 (10:00→22:17)
[2018-12-10] MEDS: ENOXAPARIN SOD 40 MG/0.4 ML SYRINGE SC SCH (10:39)
[2018-12-10] MEDS: FUROSEMIDE 40 MG TAB PO SCH (10:40)
[2018-12-10] MEDS: LINEZOLID 600MG/300ML 300 ML IV SCH ×2 (10:40→22:50)
[2018-12-10] MEDS: CIPROFLOXACIN 400MG/200ML 200 ML IV SCH ×2 (10:40→22:16)
[2018-12-10] MEDS: THIAMINE HCL 100 MG TAB PO SCH (10:40)
[2018-12-10] MEDS: METOPROLOL TARTRATE 25 MG TAB PO SCH ×2 (10:40→22:19)
[2018-12-10] MEDS: POTASSIUM EFFERVESENT TAB 25 MEQ GT SCH (10:41)
[2018-12-10 12:28] VITALS: BP 133/76
[2018-12-10 16:16] VITALS: BP 144/78
[2018-12-10] MEDS: ACETAMINOPHEN 500 MG TAB PO PRN (16:27)
[2018-12-10 22:21] VITALS: BP 143/78
[2018-12-11] MEDS: ALBUTEROL SULF 2.5 MG/0.5ML(0.5%) NEB SOLN NEB SCH ×4 (00:29→18:28)
[2018-12-11] MEDS: IPRATROPIUM BROM 0.5 MG/2.5ML INH SOL NEB SCH ×4 (00:29→18:28)
[2018-12-11] MEDS: ACCU-CHEK COMFORT CURVE STRIP VI SCH ×4 (00:30→17:06)
[2018-12-11] MEDS: InsuLIN REG 1unit/0.01ml Soln (100units/ml) SC SCH ×4 (00:31→17:20)
[2018-12-11 00:43] VITALS: BP 143/78
[2018-12-11 05:25] VITALS: BP 156/72
[2018-12-11 09:00] VITALS: BP 139/85
[2018-12-11] MEDS: POTASSIUM EFFERVESENT TAB 25 MEQ GT SCH (09:50)
[2018-12-11] MEDS: FUROSEMIDE 40 MG TAB PO SCH (09:51)
[2018-12-11] MEDS: FAMOTIDINE 20 MG TAB PO SCH (09:52)
[2018-12-11] MEDS: ENOXAPARIN SOD 40 MG/0.4 ML SYRINGE SC SCH (09:52)
[2018-12-11] MEDS: THIAMINE HCL 100 MG TAB PO SCH (09:52)
[2018-12-11] MEDS: CIPROFLOXACIN 400MG/200ML 200 ML IV SCH ×2 (09:53→21:48)
[2018-12-11] MEDS: METOPROLOL TARTRATE 25 MG TAB PO SCH ×2 (10:03→21:48)
[2018-12-11] MEDS: SODIUM CHLOR 0.9% PF (SALINE LOCK) 10ML VIAL/SYR IV SCH ×2 (10:05→21:48)
[2018-12-11] MEDS: LINEZOLID 600MG/300ML 300 ML IV SCH ×2 (11:00→23:05)
[2018-12-11 13:00] VITALS: BP 156/95
[2018-12-11 17:00] VITALS: BP 115/54
[2018-12-11 21:57] VITALS: BP 159/88
[2018-12-11] MEDS: INSULIN LANTUS (GLARGINE) 1 /0.01ml (100units/ml) SC SCH (22:02)
[2018-12-12] MEDS: InsuLIN REG 1unit/0.01ml Soln (100units/ml) SC SCH ×4 (00:15→17:18)
[2018-12-12 00:23] VITALS: BP 118/64
[2018-12-12] MEDS: ACCU-CHEK COMFORT CURVE STRIP VI SCH ×4 (00:23→17:19)
[2018-12-12] MEDS: IPRATROPIUM BROM 0.5 MG/2.5ML INH SOL NEB SCH ×4 (00:53→19:10)
[2018-12-12] MEDS: ALBUTEROL SULF 2.5 MG/0.5ML(0.5%) NEB SOLN NEB SCH ×4 (00:53→19:10)
[2018-12-12] MEDS: ACETAMINOPHEN 500 MG TAB PO PRN ×2 (02:15→21:34)
[2018-12-12 04:23] VITALS: BP 155/88
[2018-12-12 06:05] LABS: Basophils # (auto) 0.1 uL; Eosinophils # (auto) 0.6 uL; Eosinophils % (auto) 5.4 % (0.0-7.0); Hematocrit 35.1 % (36.0-46.0); Hemoglobin 11.6 g/dL (12.2-16.2); Lymphocytes # (auto) 2.6 uL; Lymphocytes % (auto) 21.7 % (10.0-50.0); Mean Corpuscular Hemoglobin 27.5 pg (28.0-32.0); Mean Corpuscular Hgb Conc. 33.2 g/dL (32.0-36.0); Mean Corpuscular Volume 82.9 fL (80.0-100.0); Monocytes % (auto) 8.5 % (0.0-12.0); Neutrophils # (auto) 7.5 uL; Neutrophils % (auto) 63.4 % (37.0-80.0); Nucleated Red Blood Cells % 0.1 %; Platelet Count (auto) 236 10^3/uL (140-450); Red Blood Cells 4.24 10^6/uL (4.0-5.20); Red Cell Distribution Width 16.6 % (11.8-14.3); White Blood Cell 11.8 10^3/uL (4.4-10.8)
[2018-12-12] MEDS: hydrALAZINE HCL 20 MG/ML VL IV PRN (06:11)
[2018-12-12 06:16] LABS: Potassium 3.2 mmol/L (3.5-5.1)
[2018-12-12 06:23] LABS: BUN/Creatinine Ratio 16.2; Calcium 8.8 mg/dL (8.5-10.1)
[2018-12-12 08:31] VITALS: BP 136/69
[2018-12-12] MEDS: CIPROFLOXACIN 400MG/200ML 200 ML IV SCH (09:26)
[2018-12-12] MEDS: FAMOTIDINE 20 MG TAB PO SCH (09:34)
[2018-12-12] MEDS: METOPROLOL TARTRATE 25 MG TAB PO SCH ×2 (09:35→21:27)
[2018-12-12] MEDS: SODIUM CHLOR 0.9% PF (SALINE LOCK) 10ML VIAL/SYR IV SCH ×2 (09:36→21:27)
[2018-12-12] MEDS ORDERED: ENOXAPARIN SOD 40 MG/0.4 ML SYRINGE SC SCH (10:00)
[2018-12-12] MEDS ORDERED: POTASSIUM CHL 20 Meq TABLET PO ONE (10:15)
[2018-12-12] MEDS: THIAMINE HCL 100 MG TAB PO SCH (10:29)
[2018-12-12 13:05] VITALS: BP 127/90
[2018-12-12 17:10] VITALS: BP 118/72
[2018-12-12 21:00] VITALS: BP 146/86
[2018-12-12] MEDS: CIPROFLOXACIN HCL 500 MG TAB PO SCH (21:27)
[2018-12-12] MEDS: DOXYCYCLINE 100 MG TAB/CAP PO SCH (21:27)
[2018-12-12] MEDS: INSULIN LANTUS (GLARGINE) 1 /0.01ml (100units/ml) SC SCH (21:35)
[2018-12-13] MEDS: ACCU-CHEK COMFORT CURVE STRIP VI SCH ×4 (00:02→17:40)
[2018-12-13] MEDS: InsuLIN REG 1unit/0.01ml Soln (100units/ml) SC SCH ×4 (00:03→17:39)
[2018-12-13] MEDS: IPRATROPIUM BROM 0.5 MG/2.5ML INH SOL NEB SCH ×3 (00:32→11:32)
[2018-12-13] MEDS: ALBUTEROL SULF 2.5 MG/0.5ML(0.5%) NEB SOLN NEB SCH ×3 (00:32→11:32)
[2018-12-13 05:00] VITALS: BP 161/69
[2018-12-13] MEDS: hydrALAZINE HCL 20 MG/ML VL IV PRN (06:05)
[2018-12-13 06:09] LABS: Potassium 3.3 mmol/L (3.5-5.1)
[2018-12-13 06:23] LABS: BUN/Creatinine Ratio 18.1; Calcium 9.3 mg/dL (8.5-10.1)
[2018-12-13] MEDS: THIAMINE HCL 100 MG TAB PO SCH (08:48)
[2018-12-13] MEDS: FAMOTIDINE 20 MG TAB PO SCH (08:48)
[2018-12-13] MEDS: DOXYCYCLINE 100 MG TAB/CAP PO SCH (08:48)
[2018-12-13] MEDS: CIPROFLOXACIN HCL 500 MG TAB PO SCH (08:49)
[2018-12-13] MEDS: METOPROLOL TARTRATE 25 MG TAB PO SCH (08:50)
[2018-12-13] MEDS: SODIUM CHLOR 0.9% PF (SALINE LOCK) 10ML VIAL/SYR IV SCH (08:51)
[2018-12-13 09:00] VITALS: BP 144/85
[2018-12-13] MEDS ORDERED: POTASSIUM CHL 10 Meq TABLET PO SCH (10:00)
[2018-12-13] MEDS ORDERED: FUROSEMIDE 40 MG TAB PO SCH (10:00)
[2018-12-13] MEDS ORDERED: POTASSIUM CHL 20 Meq TABLET PO ONE (10:30)
[2018-12-13 13:00] VITALS: BP 145/73
[2018-12-13 14:09] VITALS: BP 145/73
[2018-12-13 14:18] VITALS: BP 145/73
[2018-12-13 17:00] VITALS: BP 134/88
== END 2018-12-13 18:05 | disposition home or self-care (01) | DRG 720 ==
LOC: EDBD → ER 09:09 → EDBD 09:09 → ICU WEST 09:10 → ER 10:18 → TELE-CENTR 12-08 15:52 → CENTRAL 12-10 11:59
PROVIDERS: ADMIT Internal Medicine; ATTEND Internal Medicine
PROC: 5A1955Z Respiratory Ventilation, Greater than 96 Consecutive Hours (ICD-10-PCS; 2018-11-28)
PROC: 0BH17EZ Insertion of Endotracheal Airway into Trachea, Via Natural or Artificial Opening (ICD-10-PCS; 2018-11-28)
PROC: 02HV33Z Insertion of Infusion Device into Superior Vena Cava, Percutaneous Approach (ICD-10-PCS; principal; 2018-12-05)
DX: A41.9 Sepsis, unspecified organism (principal); J96.00 Acute respiratory failure, unspecified whether with hypoxia or hypercapnia; N17.0 Acute kidney failure with tubular necrosis; G93.41 Metabolic encephalopathy; I50.33 Acute on chronic diastolic (congestive) heart failure; J15.1 Pneumonia due to Pseudomonas; J15.212 Pneumonia due to Methicillin resistant Staphylococcus aureus; E87.4 Mixed disorder of acid-base balance; E11.22 Type 2 diabetes mellitus with diabetic chronic kidney disease; E66.01 Morbid (severe) obesity due to excess calories; E87.0 Hyperosmolality and hypernatremia; Z68.42 Body mass index [BMI] 45.0-49.9, adult; E87.6 Hypokalemia; F17.200 Nicotine dependence, unspecified, uncomplicated; N18.9 Chronic kidney disease, unspecified; R65.21 Severe sepsis with septic shock; Z79.4 Long term (current) use of insulin; Z79.899 Other long term (current) drug therapy; Z82.49 Family history of ischemic heart disease and other diseases of the circulatory system; Z82.5 Family history of asthma and other chronic lower respiratory diseases; Z83.3 Family history of diabetes mellitus; Z99.11 Dependence on respirator [ventilator] status; N39.0 Urinary tract infection, site not specified
CPT/HCPCS: 36415; 36556; 36569; 36600; 51702; 70450; 71045; 76775; 80048; 80053; 80202; 80307; 80320; 81001; 82805; 82962; 83036; 83605; 83735; 83880; 84100; 84484; 84550; 85007; 85025; 85027; 85610; 85730; 87040; 87070; 87077; 87081; 87086; 87186; 87205; 92610; 93005; 93306; 94003; 94640; 94660; 94761; 96365; 96368; 96372; 97110; 97116; 97163; 97530; 99291; A4618; G0378; J0330; J0696; J1815; J2001; J2250; J2543; J2704; J3480; J3490; J7060

== ENCOUNTER 2018-12-20 19:08 | Emergency (ER) | payer MEDICAID ==
[~2018-12-20] VITALS: Ht 160 cm; Wt 136.1 kg
[2018-12-20] MEDS ORDERED: IPRATROPIUM BROM 0.5 MG/2.5ML INH SOL NEB ONE (19:45)
[2018-12-20] MEDS ORDERED: ALBUTEROL SULF 2.5 MG/0.5ML(0.5%) NEB SOLN NEB ONE (19:45)
[2018-12-20] MEDS ORDERED: methylPREDNISolone SOD SUCC 125 MG/2 ML VL IV ONE (19:45)
[2018-12-20 20:14] LABS: Basophils # (auto) 0.1 uL; Basophils % (auto) 0.6 % (0.0-2.0); Eosinophils # (auto) 1.1 uL; Eosinophils % (auto) 10.7 % (0.0-7.0); Hematocrit 30.3 % (36.0-46.0); Hemoglobin 10.2 g/dL (12.2-16.2); Lymphocytes # (auto) 2.4 uL; Lymphocytes % (auto) 22.8 % (10.0-50.0); Mean Corpuscular Hemoglobin 29.1 pg (28.0-32.0); Mean Corpuscular Hgb Conc. 33.8 g/dL (32.0-36.0); Mean Corpuscular Volume 86.1 fL (80.0-100.0); Monocytes # (auto) 0.6 uL; Monocytes % (auto) 5.8 % (0.0-12.0); Neutrophils # (auto) 6.2 uL; Neutrophils % (auto) 60.1 % (37.0-80.0); Platelet Count (auto) 294 10^3/uL (140-450); Red Blood Cells 3.52 10^6/uL (4.0-5.20); Red Cell Distribution Width 18.9 % (11.8-14.3); White Blood Cell 10.4 10^3/uL (4.4-10.8)
[2018-12-20 20:32] LABS: Albumin 3.3 g/dL (3.4-5.0); Calcium 8.4 mg/dL (8.5-10.1); Magnesium 2.5 mg/dL (1.6-2.6); Potassium 3.3 mmol/L (3.5-5.1)
[2018-12-20 20:34] LABS: BUN/Creatinine Ratio 16.6
[2018-12-20 20:37] LABS: Bilirubin, Total 0.1 mg/dL (0.2-1.0); Total Protein 6.3 g/dL (6.4-8.2)
[2018-12-21 04:03] VITALS: BP 157/77
== END 2018-12-21 03:00 | disposition left against medical advice (07) ==
LOC: ER 19:08
DX: J45.901 Unspecified asthma with (acute) exacerbation (principal); F15.10 Other stimulant abuse, uncomplicated; R74.8 Abnormal levels of other serum enzymes; E11.9 Type 2 diabetes mellitus without complications; Z90.710 Acquired absence of both cervix and uterus
CPT/HCPCS: 36415; 71045; 80053; 83735; 83880; 84484; 85025; 85379; 93005; 94640; 99284; J7611; J7644